=== PATIENT | female | born 1960 | race Caucasian/White ===

== ENCOUNTER 2020-07-22 08:35 | Outpatient (REF) | payer OTHER, SELFPAY ==
--- NOTE | 2020-07-22 08:12 | CT_ITS ---
EXAMINATION: CT HEAD WITHOUT CONTRAST CLINICAL INFORMATION: Intractable headache COMPARISON: None TECHNIQUE: Contiguous axial imaging was performed from the skull base to vertex without intravenous administration of contrast. This CT examination was performed using dose optimization techniques as appropriate, variously including the following: *Automated exposure control *Adjustment of mA and/or kV according to patient size (this includes techniques or standardized protocols for targeted exams where dose is matched to indication/reason for exam; i.e. extremities or head) *Use of iterative reconstruction technique DLP: 572 mGy-cm FINDINGS: There is no evidence of acute intracranial hemorrhage or territorial infarction. No abnormal mass effect or midline shift is seen. Salomon to white matter differentiation is well preserved. No extra-axial fluid collections are identified. The ventricles are normal in size. Multifocal patchy subcortical and periventricular white matter low-attenuation changes. Cavernous carotid calcifications. The osseous structures and soft tissues are normal. The mastoid air cells and visualized portions of the paranasal sinuses are well aerated. IMPRESSION: * No acute intracranial hemorrhage. * No evidence of intracranial mass. * Scattered subcortical and paratracheal white matter hypodensities are nonspecific, but statistically related to chronic microangiopathic gliosis in patients of this age, and in light of the extensive cavernous carotid calcifications.
== END 2020-07-22 08:36 | disposition home or self-care (01) ==
LOC: HO.CT 08:35
PROVIDERS: PCP Internal Medicine; Visit Provider Hospitalist
DX: R51.9 Headache, unspecified (principal)
CPT/HCPCS: 70450

== ENCOUNTER 2020-08-12 09:40 | Outpatient (REF) | payer OTHER, SELFPAY ==
[2020-08-12 12:02] LABS: Glucose Urine UA NEG (NEG); Leukocyte Esterase Urine NEG (NEG); Nitrite Urine NEG (NEG); Urine Blood TRACE (NEG); Urine Ketones NEG (NEG); Urine Protein NEG (NEG-TRACE)
[2020-08-12 12:06] LABS: Appearance Urine CLEAR; Color Urine YELLOW
[2020-08-12 12:15] LABS: Alanine Aminotransferase 28 U/L (0-31); Albumin Level 4.7 g/dL (3.5-5.0); Alkaline Phosphatase 91 U/L (39-117); Anion Gap 15 (12-20); Aspartate Amino Transferase 26 U/L (5-31); Bilirubin Total 0.7 mg/dL (0.0-1.0); Blood Urea Nitrogen 10 mg/dL (9-16); Carbon Dioxide 26 mmol/L (22-29); Chloride 107 mmol/L (96-108); Estimated Glomerular Filt Rate 59; Glucose Fasting 93 mg/dL (60-99); Potassium 4.5 mmol/l (3.3-5.1); Sodium 143 mmol/L (135-145); Total Protein 7.3 g/dL (6.5-8.0)
[2020-08-12 12:33] LABS: Mucus Urine TRACE /LPF; RBC Urine 0-2 /HPF (0); Squamous Epithelial Cell Urine TRACE /LPF; WBC Urine 0-2 /HPF (0-4)
== END 2020-08-12 09:41 | disposition home or self-care (01) ==
LOC: HO.HMGCLDS 09:40
PROVIDERS: PCP Internal Medicine; Visit Provider Internal Medicine
DX: M54.9 Dorsalgia, unspecified (principal); M85.80 Other specified disorders of bone density and structure, unspecified site; Z13.9 Encounter for screening, unspecified
CPT/HCPCS: 80053; 81001; 81003

== ENCOUNTER 2020-08-21 08:51 | Outpatient (REF) | payer OTHER, SELFPAY ==
--- NOTE | 2020-08-21 08:55 | US_ITS ---
EXAMINATION: US RETROPERITONEAL LIMITED (RENAL ONLY) CLINICAL INFORMATION: Dorsalgia, unspecified. COMPARISON: None TECHNIQUE: Real-time imaging of the kidneys. FINDINGS: RIGHT KIDNEY: 9.6 x 4.4 x 5.4 cm (SAG x AP x TRV). The kidney is normal in size, contour, and echogenicity. Renal cortical thickness is normal. No calculi or focal parenchymal lesions. There is mild caliectasis present. There is an extrarenal pelvis. LEFT KIDNEY: 10.2 x 4.4 x 4.3 cm (SAG x AP x TRV). The kidney is normal in size, contour, and echogenicity. Renal cortical thickness is normal. No calculi or focal parenchymal lesions. There is mild caliectasis present with extrarenal pelvis. US/US renal BI IMPRESSION: Mild bilateral caliectasis. No renal calculi appreciated.
== END 2020-08-21 08:52 | disposition home or self-care (01) ==
LOC: HO.HMGCX 08:51
PROVIDERS: PCP Internal Medicine; Visit Provider Internal Medicine
DX: M54.9 Dorsalgia, unspecified (principal)
CPT/HCPCS: 76775

== ENCOUNTER 2020-09-11 08:52 | Outpatient (REF) | payer OTHER, SELFPAY ==
--- NOTE | 2020-09-11 08:55 | CT_ITS ---
EXAMINATION: CT ABDOMEN AND PELVIS WITHOUT CONTRAST CLINICAL INFORMATION: Chronic kidney disease, stage III. COMPARISON: Ultrasound abdomen 08/21/2020 TECHNIQUE: Multidetector volumetric imaging was performed from the superior aspect of the liver through the pubic symphysis. Sagittal and coronal reformatted images were obtained on the technologist's workstation. This CT examination was performed using dose optimization techniques as appropriate, variously including the following: *Automated exposure control *Adjustment of mA and/or kV according to patient size (this includes techniques or standardized protocols for targeted exams where dose is matched to indication/reason for exam; i.e. extremities or head) *Use of iterative reconstruction technique DLP: 320 mGy-cm FINDINGS: LUNG BASES: The visualized lung bases are unremarkable. LIVER, GALLBLADDER, AND BILIARY TREE: The liver is normal in size, shape, and attenuation. No focal hepatic lesion or biliary ductal dilatation is present. The gallbladder is unremarkable with no evidence of radiopaque gallstones, gallbladder wall thickening, or obvious pericholecystic inflammatory changes. PANCREAS: Unremarkable. SPLEEN: Unremarkable. ADRENAL GLANDS: Unremarkable. KIDNEYS AND URETERS: The kidneys are normal in size, shape, and attenuation. There is a 2 mm radiopaque calculi lower pole calyx right kidney. No additional radiopaque calculi seen. There is mild caliectasis or peripelvic renal cysts. There is no hydronephrosis in either side. BLADDER: The bladder is nondistended and appears unremarkable. GASTROINTESTINAL TRACT: There is scattered stool and gas seen throughout the colon without distention. The small bowel loops are normal caliber. Appendix is normal caliber. No inflammatory process seen in the abdomen. ABDOMINAL WALL: No significant hernia is appreciated. LYMPH NODES: Normal. VASCULAR: Unremarkable. PELVIC VISCERA: There are several phleboliths in the pelvis. OSSEOUS STRUCTURES: Mild loss of disc height with vacuum disc phenomena at L5-S1 disc level. There is mild ventral spondylosis. The rest of the disc levels, vertebral heights and alignment is normal. CT/CT abdomen pelvis wo con IMPRESSION: Moderate constipation. No acute process seen. Left parapelvic cyst versus mild caliectasis. Degenerative disc changes with vacuum disc phenomena and mild spondylosis L5-S1 disc level.
== END 2020-09-11 08:53 | disposition home or self-care (01) ==
LOC: HO.CT 08:52
PROVIDERS: PCP Internal Medicine; Visit Provider Internal Medicine
DX: M54.9 Dorsalgia, unspecified (principal); N18.30 Chronic kidney disease, stage 3 unspecified; N28.89 Other specified disorders of kidney and ureter
CPT/HCPCS: 74176

== ENCOUNTER 2020-09-18 08:41 | Outpatient (REF) | payer OTHER, SELFPAY ==
[2020-09-18 11:23] LABS: Glucose Urine UA NEG (NEG); Leukocyte Esterase Urine TRACE (NEG); Nitrite Urine NEG (NEG); Urine Blood TRACE (NEG); Urine Ketones NEG (NEG); Urine Protein NEG (NEG-TRACE)
[2020-09-18 11:29] LABS: Appearance Urine CLEAR; Color Urine YELLOW
[2020-09-18 12:02] LABS: Calcium Oxalate Crystals Urine TRACE /LPF; Mucus Urine TRACE /LPF; RBC Urine 0-2 /HPF (0); Renal Epithelial Cells Urine TRACE /LPF; Squamous Epithelial Cell Urine TRACE /LPF
== END 2020-09-18 08:42 | disposition home or self-care (01) ==
LOC: HO.HMGCLDS 08:41
PROVIDERS: PCP Internal Medicine; Visit Provider Internal Medicine
DX: R31.9 Hematuria, unspecified (principal)
CPT/HCPCS: 81001; 87086

== ENCOUNTER 2020-10-24 10:57 | Outpatient (REF) | payer OTHER, SELFPAY ==
[2020-10-24 14:01] LABS: Baso%MD 0.2 %; Eos%MD 0.3 %; Hematocrit 44.8 % (37-47); Hemoglobin 14.5 g/dl (12.0-16.0); IG%MD 0.2 %; Lymph%MD 20.9 %; Mean Corpuscular HGB Conc 32.4 g/dl (31.0-35.0); Mean Corpuscular Hemoglobin 31.5 pg (27.0-33.0); Mean Corpuscular Volume 97.4 fL (80-98); Mean Platelet Volume 12.2 fL (9.4-12.3); Neut%MD 72.4 %; Platelet Count 254 X10*3/uL (160-400); Red Cell Distribution Width 12.6 % (11.0-16.0); White Blood Count 8.7 X10*3/uL (4.8-10.8)
[2020-10-24 14:29] LABS: Glucose Urine UA NEG (NEG); Leukocyte Esterase Urine 1+ (NEG); Nitrite Urine NEG (NEG); PH 6.5 (5.0-8.0); Specific Gravity - Urine <= 1.005 (1.005-1.025); Urine Blood TRACE (NEG); Urine Ketones NEG (NEG); Urine Protein NEG (NEG-TRACE)
[2020-10-24 14:35] LABS: Appearance Urine CLEAR; Color Urine YELLOW
[2020-10-24 14:46] LABS: Alanine Aminotransferase 26 U/L (0-31); Alkaline Phosphatase 94 U/L (39-117); Anion Gap 15 (12-20); Aspartate Amino Transferase 23 U/L (5-31); Bilirubin Total 0.8 mg/dL (0.0-1.0); Blood Urea Nitrogen 16 mg/dL (9-16); Calcium 9.9 mg/dL (8.4-10.2); Carbon Dioxide 26 mmol/L (22-29); Chloride 106 mmol/L (96-108); Cholesterol 215 mg/dL; Estimated Glomerular Filt Rate 49; Glucose Fasting 82 mg/dL (60-99); HDL Cholesterol 88 mg/dL; LDL Cholesterol Calculated 115 mg/dl; Potassium 5.2 mmol/l (3.3-5.1); Sodium 142 mmol/L (135-145); Total Protein 7.9 g/dL (6.5-8.0); Triglycerides 63 mg/dL
[2020-10-24 15:20] LABS: Thyroid Stimulating Hormone 0.94 uIU/mL (0.32-4.0); Vitamin D 25-OH Total 44.1 ng/mL (>30)
[2020-10-24 15:27] LABS: RBC Urine 0-2 /HPF (0); Renal Epithelial Cells Urine TRACE /LPF; Squamous Epithelial Cell Urine TRACE /LPF; WBC Urine 0-2 /HPF (0-4)
[2020-10-24 15:58] LABS: Atypical Lymph Absolute Manual 0.3 x10*3/uL; Atypical Lymphs Percent Manual 3 % (0-6); Band Neutrophils Percent 1 % (3-5); Lymphocytes Absolute Manual 1.8 X10*3/uL (0.6-4.8); Lymphocytes Percent Manual 21 % (20-40); Monocytes Absolute Manual 0.6 X10*3/uL (0.0-1.2); Monocytes Percent Manual 7 % (2-11); Neutrophils Percent Manual 68 % (45-73)
[2020-10-24 15:59] LABS: RBC Morphology NORMAL
[2020-10-24 16:00] LABS: Large Platelet PRESENT; Platelet Estimate NORMAL (NORMAL); Platelet Morphology Comment NOTED
== END 2020-10-24 10:58 | disposition home or self-care (01) ==
LOC: HO.HMGCLDS 10:57
PROVIDERS: PCP Internal Medicine; Visit Provider Internal Medicine
DX: Z00.00 Encounter for general adult medical examination without abnormal findings (principal); N28.9 Disorder of kidney and ureter, unspecified; E55.9 Vitamin D deficiency, unspecified
CPT/HCPCS: 36415; 80053; 80061; 81001; 81003; 82306; 84443; 85007; 85027; 87086

== ENCOUNTER 2021-04-18 06:54 | Outpatient (REF) | payer OTHER, SELFPAY ==
[2021-04-18 12:16] LABS: Alanine Aminotransferase 33 U/L (0-31); Albumin Level 4.4 g/dL (3.5-5.0); Alkaline Phosphatase 97 U/L (39-117); Anion Gap 17 (12-20); Aspartate Amino Transferase 23 U/L (5-31); Bilirubin Total 0.5 mg/dL (0.0-1.0); Blood Urea Nitrogen 24 mg/dL (9-16); Calcium 9.8 mg/dL (8.4-10.2); Carbon Dioxide 25 mmol/L (22-29); Chloride 105 mmol/L (96-108); Estimated Glomerular Filt Rate 56; Glucose Random 90 mg/dL (60-115); Potassium 4.7 mmol/L (3.3-5.1); Sodium 142 mmol/L (135-145); Total Protein 7.1 g/dL (6.5-8.0)
[2021-04-18 12:41] LABS: Thyroid Stimulating Hormone 1.26 uIU/mL (0.32-4.0); Vitamin D 25-OH Total 40.2 ng/mL (>30)
[2021-04-21 08:38] LABS: Calcium (PTHI) 9.7 mg/dL (8.6-10.4); PTHI 41 pg/mL (14-64)
[2021-04-23 06:23] LABS: N-Telopeptide 42 (see note); NTXCreaRU 31 mg/dL (20-275)
== END 2021-04-18 06:55 | disposition home or self-care (01) ==
LOC: HO.HMGCLDS 06:54
PROVIDERS: PCP Internal Medicine; Visit Provider Obstetrics & Gynecology Gynecology
DX: Z00.00 Encounter for general adult medical examination without abnormal findings (principal); N18.30 Chronic kidney disease, stage 3 unspecified; M85.9 Disorder of bone density and structure, unspecified
CPT/HCPCS: 36415; 80048; 80053; 82306; 82523; 83970; 84443

== ENCOUNTER 2021-08-28 09:28 | Day surgery (SDC) | payer OTHER, SELFPAY ==
--- NOTE | 2021-08-27 12:00 | HO.ANESPROP2 ---
Documented by User: Cristela Garrett NP 08/27/21 12:02 HPI - Anesthesia Eval Consult details Narrative: 61yo F for Colonoscopy PMFSH Active Problems Active Problems: All Active Problems (Updated 08/24/21 @ 09:33 by Remedios Barnes, STEPHAN) Annual physical exam (Acute) Hematuria (Acute) Caliectasis determined by ultrasound of kidney (Acute) Chronic kidney disease, stage 3 (Acute) Back pain (Acute) Past Medical History Medical History Back pain Caliectasis determined by ultrasound of kidney Chronic kidney disease, stage 3 Hematuria Osteopenia Sigmoid diverticulosis Family History Family History Father No problems noted. Mother Squamous cell lung cancer Son No problems noted. Daughter No problems noted. Surgical History Surgical History H/O colonoscopy History of colonoscopy History of tubal ligation Hx of ovarian cystectomy Social History Social History Patient Tobacco Use Status: Never used Tobacco Use of substances other than those prescribed or required for medical reasons: No Advance Directives: No Advance Directives Information Provided: Yes Recently lost weight without trying: No Patient : No Meds Allergies Allergy/AdvReac Type Severity Reaction Status Date / Time No Known Allergies Allergy Verified 08/24/21 09:35 Home Medications Medication Instructions Recorded Confirmed Last Taken Type calcium carbonate [Calcium 600] PO 08/12/20 10/29/20 Unknown History cholecalciferol (vitamin D3) 25 25 mcg PO DAILY 08/12/20 08/24/21 Unknown History mcg (1,000 unit) capsule magnesium PO 08/12/20 10/29/20 Unknown History pyridoxine (vitamin B6) PO 08/12/20 10/29/20 Unknown History alendronate 70 mg tablet 1 tab PO QWEEK 08/24/21 08/24/21 Unknown History Exam Exam Date and Time: August 27, 2021 1200 Pertinent Lab Results Pertinent Lab Results: Laboratory Tests 10/24/20 04/18/21 11:07 07:05 WBC 8.7 Hgb 14.5 Hct 44.8 Plt Count 254 Sodium 142 Potassium 4.7 Chloride 105 Carbon Dioxide 25 BUN 24 H Creatinine 1.01 Assessment and Plan Assessment Anesthesia Assessment: Chart Reviewed Documented by User: Kenisha Bullock MD 08/28/21 10:15 [facility] Past Medical History Medical History Back pain Caliectasis determined by ultrasound of kidney Chronic kidney disease, stage 3 Hematuria Osteopenia Sigmoid diverticulosis Family History Family History Father No problems noted. Mother Squamous cell lung cancer Son No problems noted. Daughter No problems noted. Surgical History Surgical History H/O colonoscopy History of colonoscopy History of tubal ligation Hx of ovarian cystectomy History of Problems with Anesthesia: No Social History Social History Patient Tobacco Use Status: Never used Tobacco Use of substances other than those prescribed or required for medical reasons: No Advance Directives: No Advance Directives Information Provided: Yes Recently lost weight without trying: No Patient : No Meds Allergies Allergy/AdvReac Type Severity Reaction Status Date / Time No Known Allergies Allergy Verified 08/24/21 09:35 Home Medications Medication Instructions Recorded Confirmed Last Taken Type calcium carbonate [Calcium 600] PO 08/12/20 10/29/20 Unknown History cholecalciferol (vitamin D3) 25 25 mcg PO DAILY 08/12/20 08/24/21 Unknown History mcg (1,000 unit) capsule magnesium PO 08/12/20 10/29/20 Unknown History pyridoxine (vitamin B6) PO 08/12/20 10/29/20 Unknown History alendronate 70 mg tablet 1 tab PO QWEEK 08/24/21 08/24/21 Unknown History Exam Airway Mallampati Class: I TM Dist: >3cm Neck ROM: Full Loose/Missing/Broken Teeth: No Heart: RRR Lungs: CTA Assessment and Plan Assessment Anesthesia Assessment: Anesthesia Plan Discussed Final Anesthetic Review History of Problems with Anesthesia: No NPO: Yes ASA Class: II Final Preanesthetic Review: Meds/Allgs Chart Reviewed, Consent Obtained/Reviewed and Anes Risks/Benef Reviewed Patient Risk: Low Procedure Risk: Low Anesthetic Plan Anesthetic Plan: MAC: Disposition: Standard PACU
[2021-08-28 09:40] VITALS: BP 121/68; PULSE 62; RESP 16; TEMP 36.9; O2SAT 100; BMI 21.7
[2021-08-28] MEDS: Lactated Ringers 1,000 ML 100 ML IVCONT (09:53)
[2021-08-28 11:27] VITALS: BP 95/46; PULSE 56; RESP 18; TEMP 36.3; O2SAT 99
--- NOTE | 2021-08-28 11:31 | PM.OP ---
Brief Operative Note Date of Service: 08/28/21 Pre-op diagnosis: Screening Post-op diagnosis: other (Mild diverticulosis) Procedure: Colonoscopy to the cecum and TI Surgeon: Jj Carter Anesthesia: MAC Was an Flight Software Test Engineer used for this Procedure?: No Estimated blood loss (mL): 0 Pathology: none sent Condition: stable Disposition: PACU
[2021-08-28 11:42] VITALS: BP 107/58; PULSE 59; RESP 18; TEMP 36.3; O2SAT 100
--- NOTE | 2021-08-28 22:13 | OP_ITS ---
SURGEON: Jj Carter MD INDICATIONS: The patient presents for evaluation of colorectal cancer screening and family history of colorectal cancer and colon polyps. Full consent has been obtained from her for this, including risks of bleeding and perforation. PREOPERATIVE DIAGNOSIS: POSTOPERATIVE DIAGNOSIS: PROCEDURE PERFORMED: ESTIMATED BLOOD LOSS: COMPLICATIONS: ANESTHESIA: Monitored anesthesia care. ASSISTANTS: SPECIMENS: PROCEDURE: Colonoscopy to the cecum and terminal ileum. PREOPERATIVE DIAGNOSES: Colorectal cancer screening, family history of colon cancer, family history of colon polyps. POSTOPERATIVE DIAGNOSES: Colorectal cancer screening, family history of colon cancer, family history of colon polyps, mild sigmoid diverticulosis. DESCRIPTION OF PROCEDURE: The patient was placed in the left lateral decubitus position. The digital rectal exam revealed no abnormalities. The Olympus video pediatric colonoscope was entered into the rectum and advanced easily to the cecum. Once in the cecum, I did visualize normal-appearing cecal pouch with appendiceal orifice and a normal-appearing ileocecal valve. The terminal ileum was cannulated and appeared normal. The scope withdrawn back in the colon. The entire cecum and ileocecal valve appeared normal. The scope was slowly withdrawn assessing all mucosal surfaces carefully. Preparation was excellent. I did not visualize any sign of polyps, colitis, nor angiodysplasia. There was a mild amount of sigmoid diverticulosis. In the rectum, scope was retroflexed visualizing normal rectal mucosa but no pathology. The rectal mucosa appeared normal. The scope was straightened and withdrawn from the patient. She tolerated the procedure well and was returned to recovery area in stable condition. IMPRESSION: Mild sigmoid diverticulosis, otherwise normal colonoscopy. PLAN: Given her family history, I would recommend a followup colonoscopy in 5 years for further screening. She will otherwise see me on a p.r.n. basis. This has been discussed with her . MD MIGUELINA Marte/CINDY / [phone]
== END 2021-08-28 12:31 | disposition home or self-care (01) ==
PROVIDERS: PCP Internal Medicine; Visit Provider Internal Medicine
PROC: 0DJD8ZZ Inspection of Lower Intestinal Tract, Via Natural or Artificial Opening Endoscopic (ICD-10-PCS; CPT 45378; principal; 2021-08-28 10:30)
DX: Z12.11 Encounter for screening for malignant neoplasm of colon (principal); Z80.0 Family history of malignant neoplasm of digestive organs; Z83.71 Family history of colonic polyps; K57.30 Diverticulosis of large intestine without perforation or abscess without bleeding
CPT/HCPCS: 45378

== ENCOUNTER 2021-10-27 09:25 | Outpatient (REF) | payer OTHER, SELFPAY ==
[2021-10-27 11:31] LABS: Hematocrit 41.6 % (37.0-47.0); Hemoglobin 13.4 g/dl (12.0-16.0); Mean Corpuscular HGB Conc 32.2 g/dl (31.0-35.0); Mean Corpuscular Hemoglobin 31.5 pg (27.0-33.0); Mean Corpuscular Volume 97.9 fL (80.0-98.0); Mean Platelet Volume 12.1 fL (9.4-12.3); Platelet Count 245 X10*3/uL (160-400); Red Blood Count 4.25 X10*6/uL (4.20-5.50); Red Cell Distribution Width 13.5 % (11.0-16.0); White Blood Count 6.2 X10*3/uL (4.8-10.8)
[2021-10-27 11:36] LABS: Appearance Urine CLEAR; Color Urine YELLOW; Glucose Urine UA NEG (NEG); Leukocyte Esterase Urine TRACE (NEG); Nitrite Urine NEG (NEG); PH 7.5 (5.0-8.0); Specific Gravity - Urine 1.015 (1.005-1.025); Urine Blood NEG (NEG); Urine Ketones NEG (NEG); Urine Protein NEG (NEG-TRACE)
[2021-10-27 12:10] LABS: Alanine Aminotransferase 49 U/L (0-31); Albumin Level 4.3 g/dL (3.5-5.0); Alkaline Phosphatase 71 U/L (39-117); Anion Gap 13 (12-20); Aspartate Amino Transferase 28 U/L (5-31); Bilirubin Total 0.6 mg/dL (0.0-1.0); Blood Urea Nitrogen 21 mg/dL (9-16); Carbon Dioxide 25 mmol/L (22-29); Chloride 110 mmol/L (96-108); Cholesterol 214 mg/dL; Estimated Glomerular Filt Rate > 60; Glucose Fasting 90 mg/dL (60-99); HDL Cholesterol 82 mg/dL; LDL Cholesterol Calculated 118 mg/dl; Potassium 4.1 mmol/L (3.3-5.1); Sodium 144 mmol/L (135-145); Total Protein 7.1 g/dL (6.5-8.0); Triglycerides 71 mg/dL
[2021-10-27 12:15] LABS: RBC Urine 0 /HPF (0); Squamous Epithelial Cell Urine TRACE /LPF; WBC Urine 0-2 /HPF (0-4)
[2021-10-27 12:24] LABS: Vitamin D 25-OH Total 38.8 ng/mL (>30)
== END 2021-10-27 09:26 | disposition home or self-care (01) ==
LOC: HO.HMGCLDS 09:25
PROVIDERS: PCP Internal Medicine; Visit Provider Internal Medicine
DX: Z00.00 Encounter for general adult medical examination without abnormal findings (principal); N18.30 Chronic kidney disease, stage 3 unspecified
CPT/HCPCS: 36415; 80053; 80061; 81001; 82306; 85027

== ENCOUNTER 2022-09-23 09:35 | Outpatient (REF) | payer OTHER, SELFPAY ==
--- NOTE | ~2022-09-23 | XR_ITS ---
EXAMINATION: XR ANKLE, RIGHT CLINICAL INFORMATION: Right ankle injury COMPARISON: None TECHNIQUE: AP, lateral, and mortise views of the right ankle. FINDINGS: There is mild lateral soft tissue swelling. The bones and soft tissues are otherwise unremarkable. No fracture. Alignment is anatomic. Joint spaces are maintained. No joint effusion. XR/XR ankle RT min 3V IMPRESSION: Lateral soft tissue swelling without fracture.
== END 2022-09-23 09:36 | disposition home or self-care (01) ==
LOC: HO.HMGCX 09:35
PROVIDERS: PCP Internal Medicine; Visit Provider Internal Medicine
DX: M25.571 Pain in right ankle and joints of right foot (principal); S99.911A Unspecified injury of right ankle, initial encounter; M25.471 Effusion, right ankle; R26.2 Difficulty in walking, not elsewhere classified; X58.XXXA Exposure to other specified factors, initial encounter; Y93.9 Activity, unspecified; Y92.9 Unspecified place or not applicable; Y99.9 Unspecified external cause status
CPT/HCPCS: 73610

== ENCOUNTER 2023-01-17 09:55 | Outpatient (REF) | payer OTHER, SELFPAY ==
[2023-01-17 11:22] LABS: Appearance Urine Clear; Color Urine Yellow; Glucose Urine UA Negative (Negative); Leukocyte Esterase Urine Trace (Negative); Nitrite Urine Negative (Negative); PH 8.5 (5.0-9.0); Specific Gravity - Urine 1.015 (1.005-1.025); UMIC TRIGGER UA YES; Urine Blood Negative (Negative); Urine Ketones Negative (Negative); Urine Protein Negative (Neg-Trace)
[2023-01-17 11:24] LABS: Hematocrit 40.4 % (37.0-47.0); Mean Corpuscular HGB Conc 32.2 g/dl (31.0-35.0); Mean Corpuscular Volume 96.4 fL (80.0-98.0); Mean Platelet Volume 11.7 fL (9.4-12.3); Platelet Count 253 X10*3/uL (160-400); Red Blood Count 4.19 X10*6/uL (4.20-5.50); White Blood Count 7.6 X10*3/uL (4.8-10.8)
[2023-01-17 11:27] LABS: Bacteria Urine None Seen (None Seen); Hyaline Casts Urine 0-2 /LPF (0-2); RBC Urine 0-2 /HPF (0-2); Squamous Epithelial Cell Urine 0-2 /HPF (0-2); WBC Urine 0-5 /HPF (0-5)
[2023-01-17 11:50] LABS: Alanine Aminotransferase 31 U/L (0-31); Albumin Level 4.3 g/dL (3.5-5.0); Alkaline Phosphatase 66 U/L (39-117); Anion Gap 10 (12-20); Aspartate Amino Transferase 24 U/L (5-31); Bilirubin Total 0.7 mg/dL (0.0-1.0); Blood Urea Nitrogen 13 mg/dL (9-16); Calcium 9.1 mg/dL (8.4-10.2); Carbon Dioxide 28 mmol/L (22-29); Chloride 108 mmol/L (96-108); Cholesterol 172 mg/dL; Estimated Glomerular Filt Rate 56; Glucose Fasting 89 mg/dL (60-99); HDL Cholesterol 60 mg/dL; LDL Cholesterol Calculated 100 mg/dl; Potassium 4.4 mmol/L (3.3-5.1); Sodium 142 mmol/L (135-145); Total Protein 6.6 g/dL (6.5-8.0); Triglycerides 60 mg/dL
[2023-01-17 12:10] LABS: Vitamin D 25-OH Total 37.4 ng/mL (>30)
[2023-01-23 15:34] LABS: Vitamin B6 6.5 ng/mL (2.1-21.7)
== END 2023-01-17 09:56 | disposition home or self-care (01) ==
LOC: HO.HMGCLDS 09:55
PROVIDERS: PCP Internal Medicine; Visit Provider Internal Medicine
DX: Z00.00 Encounter for general adult medical examination without abnormal findings (principal); M85.80 Other specified disorders of bone density and structure, unspecified site
CPT/HCPCS: 36415; 80053; 80061; 81001; 82306; 84207; 85027

== ENCOUNTER 2023-10-11 11:10 | Outpatient (AMB) | payer OTHER, SELFPAY ==
[2023-10-11 11:12] VITALS: BP 120/68; PULSE 66; O2SAT 99; BMI 24.3
--- NOTE | 2023-10-11 11:12 | A.OFFPC_ITS ---
Vital Signs 10/11/23 11:12 Height 5 ft 2 in Weight 133 lb BMI 24.3 BP 120/68 Blood Pressure Location Lt brachial Position Sitting Pulse 66 Pulse Source Pulse Oximeter Pulse Oximetry (%) 99 Oxygen Delivery Method Room Air Intake Visit Reasons: Lower back pain Intake Note: Pt is here today for a sick visit. Pt c/o lower back pain that radiates across her back. Pt also c/o raised area on the L side of her shoulder blade. Pt states that sometimes when she breaths she gets stabbing pain in that area. Allergies No Known Allergies Allergy (Verified 10/11/23 11:22) Medication List - Last Reconciled 10/11/23 by Hannah Koch MD alendronate 1 tab PO QWEEK calcium carbonate (Calcium 600) PO cholecalciferol (vitamin D3) 25 mcg PO DAILY estradiol (Yuvafem) 0 mcg vaginal magnesium PO Tobacco use date assessed: 10/11/23 Dental Screening Dental Screen Date: 10/11/23 Did you have a dental visit in the last 12 months?: Yes Did you have a dental problem in the last 6 months where you did not have access to dental care?: No Was dental information given to patient?: Patient has dentist HPI Lower back pain HPI Details Pt c/o persistent on and off since June LBP and midback pain sharp, worse with movement and deep breathing. also when walking or stretching, started in June. Patient denies any injury pain radiating to lower extremities weakness or numbness in extremities or change in bowel or bladder function, PFSH Medical History Back pain Caliectasis determined by ultrasound of kidney Chronic kidney disease, stage 3 Hematuria Osteopenia Sigmoid diverticulosis Surgical History H/O colonoscopy History of colonoscopy History of tubal ligation Hx of ovarian cystectomy Family History Father No problems noted. Mother Squamous cell lung cancer Son No problems noted. Daughter No problems noted. Social History Housing: House Patient Tobacco Use Status: Never used Tobacco e-Cigarette/Vaping Use: Never Used Current occupational status: employed Cognitive needs: No Hearing needs: No Vision needs: Yes Questionnaire PHQ-9 Over the last 2 weeks, how often have you been bothered by any of the following problems? 1. Little interest or pleasure in doing things: not at all 2. Feeling down, depressed, or hopeless: not at all 3. Trouble falling or staying asleep, or sleeping too much: not at all 4. Feeling tired or having little energy: not at all 5. Poor appetite or overeating: not at all 6. Feeling bad about yourself - or that you are a failure or have let yourself or your family down: not at all 7. Trouble concentrating on things, such as reading the newspaper or watching television: not at all 8. Moving or speaking so slowly that other people could have noticed. Or the opposite - being so fidgety or restless that you have been moving around a lot more than usual: not at all 9. Thoughts that you would be better off or of hurting yourself in some way: not at all Total score: 0 Depression Screening Interpretation: Negative Depression Screening Done: Yes Source: Developed by Drs. Jj Grover, Shelby Albarado, Phillip Tavera and colleagues, with an educational meri from [employer]. Thrive Questionnaire Date Thrive assessed: 10/11/23 I am a: Patient What is your living situation today?: I have a steady place to live Within the past 12 months, did the food you bought not last and you didn't have the money to get more?: Never true Within the past 12 months, did you worry whether your food would run out before you got money to buy more?: Never true Do you have trouble paying for medicines?: No Do you have trouble getting transportation to medical appointments?: No Do you have trouble paying your heating and electricity bill?: No Do you have trouble taking care of your child, family member or friend?: No Do you have trouble with day-to-day activities such as bathing, preparing meals, shopping, managing finances, etc.?: No Are you currently unemployed and looking for a job?: No Are you interested in more education?: No Please select the resources that you would like help with: None Currently or been in a relationship where the following occur: no concerns reported AUDIT C Alcohol Use Questionnaire (AUDIT-C) 1. How often do you have a drink containing alcohol?: Never 3. How often do you have six or more drinks on one occasion?: Never Total Score: 0 HARJEET-7 AMB Questionnaire HARJEET-7 Date HARJEET - 7 assessed: 10/11/23 Feeling nervous, anxious, or on edge: 0 = Not at all Not being able to stop or control worryin = Several days Worrying too much about different things: 0 = Not at all Trouble relaxin = Not at all Being so restless that it is hard to sit still: 0 = Not at all Becoming easily annoyed or irritable: 0 = Not at all Feeling afraid as if something awful might happen: 0 = Not at all Total HARJEET-7 score (0-4 normal; 5-9 mild; 10-14 moderate; 15-21 severe): 1 Source: Developed by Drs. Jj Grover, Shelby Albarado, Phillip Tavera and colleagues, with an educational meri from [employer]. Review of Systems Const All systems reviewed & are unremarkable except as noted in HPI and below Reports no additional complaints Eyes Reports no additional complaints ENT Reports no additional complaints Card Reports no additional complaints Resp Reports no additional complaints GI Reports no additional complaints Reports no additional complaints Physical exam (Primary Care) Vital Signs: Last Vital Signs Pulse 66 10/11/23 11:12 BP 120/68 10/11/23 11:12 Pulse Ox 99 10/11/23 11:12 Oxygen Delivery Method Room Air 10/11/23 11:12 BMI result Body Mass Index 24.3 Tobacco/Smoking Status: Tobacco use Status Tobacco use date assessed 10/11/23 10/11/23 11:24 Patient Tobacco Use Status Never used Tobacco 10/11/23 11:12 e-Cigarette/Vaping Use Never Used 10/11/23 11:12 PHQ-9: PHQ-9 Score PHQ-9: Total score 0 10/11/23 11:29 Depression Screening Interpretation: Negative Thrive Assessment: Date of Thrive Assessment Date Thrive assessed 10/11/23 10/11/23 11:29 Currently or been in a relationship where the following occur: no concerns reported Const General: no acute distress HENMT Head: Yes normal to inspection Ears: hearing grossly normal bilaterally General nose exam: Normal external nose present Mouth: Normal oral and palatal mucosa present Throat: Yes posterior oropharynx normal Eyes General: appearance normal, both eyes and all related structures Neck Neck: Yes supple Resp Effort & Inspection: normal respiratory effort Auscultation: clear to auscultation bilaterally Cardio Rhythm: regular rhythm Heart sounds: S1 normal heart sound present and S2 normal heart sound present GI Auscultation: normal bowel sounds Back/Spine/Pelvis Other: There is left mid thoracic paraspinal reproducible tenderness, no soft tissue swelling, erythema or warmth, there is no lumbar spine tenderness, straight leg rising 90 degrees bilaterally, motor strength 5/5 bilaterally Assessment and Plan Assessment & Plan (1) Thoracic spine pain: Code(s): M54.6 - Pain in thoracic spine Plan: Obtain x-rays and referred to physical therapy (2) Lower back pain: Code(s): M54.50 - Low back pain, unspecified Plan: Check x-ray and referred to physical therapy, body mechanics and lower back protection discussed with the patient Orders: Orders XR lumbar spine 2-3V Today M54.50 - Low back pain, unspecified, M54.6 - Pain in thoracic spine XR thoracic spine 2V Today M54.50 - Low back pain, unspecified, M54.6 - Pain in thoracic spine PT Evaluation and Treatment Today M54.50 - Low back pain, unspecified, M54.6 - Pain in thoracic spine Coding Level of Care Code Est Pt Level 3 (26632) Diagnoses Thoracic spine pain M54.6 Lower back pain M54.50
== END 2023-10-11 11:53 | disposition home or self-care (01) ==
PROVIDERS: PCP Internal Medicine; Visit Provider Internal Medicine
DX: M54.6 Pain in thoracic spine (principal); M54.50 Low back pain, unspecified
CPT/HCPCS: 99213

== ENCOUNTER 2023-10-11 11:50 | Outpatient (REF) | payer OTHER, SELFPAY | END 2023-10-11 11:51 | disposition home or self-care (01) | LOC: HO.HMGCX 11:50 | PROVIDERS: PCP Internal Medicine; Visit Provider Internal Medicine | DX: M54.50 Low back pain, unspecified (principal); M54.6 Pain in thoracic spine | CPT/HCPCS: 72070; 72100 ==

== ENCOUNTER 2023-11-25 08:00 | Outpatient (RCR) | payer OTHER, SELFPAY ==
--- NOTE | 2023-10-28 09:14 | MHC.PT.EP ---
[facility] [place] Office [place] Office [place] Office [address] [phone] F: [phone] F: [phone] F: [phone] F: [phone] Physical Therapy Plan of Care Date of Evaluation: 10/28/23 Date of Surgery: Diagnosis: pain in thoracic spine LBP Assessment: 63 y/o R-hand dominant female referred to PT with pain thoracic spine and LBP. S/s consistent with lumbar derangement, L hip tendinopathy, and trigger point of L rhomboids resulting in pain with supine lying, L UE reaching at times secondary to decreased hip AROM, decreased L hip strength, slightly decreased core activation, [place] with gait, and impaired mechanics with bridges/ squats/ quadruped. Pt would like to learn how to manage chornic back pain and plan to review her I HEP while correcting form, constipation management education, STM/MFR to hip/scapular region, and strengthening. Frequency and Duration: The patient will be seen 1x/week for 4 weeks Short Term Goals: 2 weeks Pt will demonstrate neutral spine with quadruped exercises without cues 8/10x Thermodynamics Engineer Goals: 4 weeks I with HEP and self management of sx Pt will report > 50% decrease in pain L hip Treatment Plan: Modalities to reduce pain, spasms and effusion. Manual therapy to restore motion and function. Therapeutic exercise to improve strength and flexibility. Neuromuscular re-education for posture and balance. Therapeutic activities to return to functional activities of daily living. Electronically signed by: Fide Pritchard PT Please sign and return to therapist. Thank you for your referral.
--- NOTE | 2023-11-25 08:56 | MHC.PT.DC ---
[facility] [place] Office [place] Office [place] Office [address] [phone] F: [phone] F: [phone] F: [phone] F: [phone] Physical Therapy Discharge Report Diagnosis: pain in thoracic spine LBP Date of Surgery: Date of Evaluation: 10/28/23 Date of Discharge: 11/25/23 Treatments to Date: 5 Cancellations to Date: 0 No Shows to Date: 0 Discharge Status: Achieved Goals Improved Function Independent with HEP Discharge Summary: Reports hip sx feel better, but the trigger point in L scapula is still there. Reports exercises feel good and she has more awareness of pelvis/rib cage alignment. We reviewed HEP and no modifications or corrections needed. Pt is appropriate for d/c secondary to meeting all goals and I with HEP. Electronically signed by: Fide Pritchard PT Please sign and return to therapist. Thank you for your referral.
== END 2023-11-25 08:56 | disposition home or self-care (01) ==
LOC: HO.PTCHIC 08:00
PROVIDERS: PCP Internal Medicine; Visit Provider Internal Medicine
DX: M54.6 Pain in thoracic spine (principal); M54.50 Low back pain, unspecified
CPT/HCPCS: 97110; 97112; 97140; 97161

== ENCOUNTER 2024-01-18 09:21 | Outpatient (REF) | payer OTHER, SELFPAY ==
[2024-01-18 10:37] LABS: MANUAL DIFF FLAG NO
[2024-01-18 10:47] LABS: Basophils Percent Auto 0.4 % (0-2); Eosinophils Percent Auto 0.2 % (0-4); Hemoglobin 14.1 g/dl (12.0-16.0); Imm Gran Abs Auto 0.03 X10*3/uL (0.00-0.03); Imm Gran Pct Auto 0.4 % (0.0-0.4); Lymphocytes Absolute Auto 1.7 X10*3/uL (1.2-4.9); Mean Corpuscular HGB Conc 32.8 g/dl (31.0-35.0); Mean Corpuscular Hemoglobin 31.5 pg (27.0-33.0); Mean Platelet Volume 11.9 fL (9.4-12.3); Monocytes Absolute Auto 0.6 X10*3/uL (0.1-1.2); Monocytes Percent Auto 6.7 % (2-11); Neutrophils Absolute Auto 6.1 x10*3/uL (2.0-8.3); Neutrophils Percent Auto 72.3 % (45-73); Platelet Count 247 X10*3/uL (160-400); Red Blood Count 4.48 X10*6/uL (4.20-5.50); Red Cell Distribution Width 12.7 % (11.0-16.0); White Blood Count 8.4 X10*3/uL (4.8-10.8)
[2024-01-18 11:33] LABS: Alanine Aminotransferase 20 U/L (0-31); Albumin Level 4.8 g/dL (3.5-5.0); Alkaline Phosphatase 63 U/L (39-117); Anion Gap 14 (12-20); Aspartate Amino Transferase 20 U/L (5-31); Bilirubin Total 0.8 mg/dL (0.0-1.0); Blood Urea Nitrogen 19 mg/dL (9-16); Calcium 9.2 mg/dL (8.4-10.2); Carbon Dioxide 26 mmol/L (22-29); Chloride 108 mmol/L (96-108); Cholesterol 185 mg/dL (<200); Estimated Glomerular Filt Rate 55; Glucose Fasting 91 mg/dL (60-99); HDL Cholesterol 83 mg/dL (>40); LDL Cholesterol Calculated 91 mg/dL (<100); Potassium 4.1 mmol/L (3.3-5.1); Sodium 144 mmol/L (135-145); Total Protein 7.6 g/dL (6.5-8.0); Triglycerides 55 mg/dL (<150)
[2024-01-18 11:38] LABS: TSH reflex Free T4 1.73 uIU/mL (0.32-4.0); Vitamin D 25-OH Total 36.7 ng/mL (>30)
== END 2024-01-18 09:22 | disposition home or self-care (01) ==
LOC: HO.HMGCLDS 09:21
PROVIDERS: PCP Internal Medicine; Visit Provider Internal Medicine
DX: Z00.00 Encounter for general adult medical examination without abnormal findings (principal); N18.30 Chronic kidney disease, stage 3 unspecified; E55.9 Vitamin D deficiency, unspecified
CPT/HCPCS: 36415; 80053; 80061; 82306; 84443; 85025

== ENCOUNTER 2024-01-31 07:45 | Outpatient (AMB) | payer OTHER, SELFPAY ==
[2024-01-31 08:10] VITALS: BP 108/70; PULSE 60; O2SAT 99; BMI 23.4
--- NOTE | 2024-01-31 08:10 | MHC.PC.OV ---
Vital Signs 01/31/24 08:10 Height 5 ft 2 in Weight 128 lb BMI 23.4 BP 108/70 Blood Pressure Location Rt brachial Position Sitting Pulse 60 Pulse Source Pulse Oximeter Pulse Oximetry (%) 99 Oxygen Delivery Method Room Air Intake Visit Reasons: PE Intake Note: Pt is here today for PE. Allergies No Known Allergies Allergy (Verified 01/31/24 08:11) Medication List - Last Reconciled 01/31/24 by Hannah Koch MD alendronate 1 tab PO QWEEK calcium carbonate (Calcium 600) PO cholecalciferol (vitamin D3) 25 mcg PO DAILY estradiol (Yuvafem) 0 mcg vaginal magnesium PO Tobacco use date assessed: 01/31/24 Dental Screening Dental Screen Date: 01/31/24 Did you have a dental visit in the last 12 months?: Yes Did you have a dental problem in the last 6 months where you did not have access to dental care?: No Was dental information given to patient?: Patient has dentist HPI PE HPI Details Pt presents for PE. 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 Mother Squamous cell lung cancer Son No problems noted. Daughter No problems noted. Social History Housing: House Patient Tobacco Use Status: Never used Tobacco e-Cigarette/Vaping Use: Never Used service: No Current occupational status: employed Cognitive needs: No Hearing needs: No Vision needs: Yes Questionnaire PHQ-9 Over the last 2 weeks, how often have you been bothered by any of the following problems? 1. Little interest or pleasure in doing things: not at all 2. Feeling down, depressed, or hopeless: not at all 3. Trouble falling or staying asleep, or sleeping too much: not at all 4. Feeling tired or having little energy: not at all 5. Poor appetite or overeating: not at all 6. Feeling bad about yourself - or that you are a failure or have let yourself or your family down: not at all 7. Trouble concentrating on things, such as reading the newspaper or watching television: not at all 8. Moving or speaking so slowly that other people could have noticed. Or the opposite - being so fidgety or restless that you have been moving around a lot more than usual: not at all 9. Thoughts that you would be better off or of hurting yourself in some way: not at all Total score: 0 Depression Screening Interpretation: Negative Depression Screening Done: Yes Source: Developed by Drs. Jj Grover, Shelby Albarado, Phillip Tavera and colleagues, with an educational meri from [employer]. Thrive Questionnaire Date Thrive assessed: 01/31/24 I am a: Patient What is your living situation today?: I have a steady place to live Within the past 12 months, did the food you bought not last and you didn't have the money to get more?: Never true Within the past 12 months, did you worry whether your food would run out before you got money to buy more?: Never true Do you have trouble paying for medicines?: No Do you have trouble getting transportation to medical appointments?: No Do you have trouble paying your heating and electricity bill?: No Do you have trouble taking care of your child, family member or friend?: No Do you have trouble with day-to-day activities such as bathing, preparing meals, shopping, managing finances, etc.?: No Are you currently unemployed and looking for a job?: No Are you interested in more education?: No Please select the resources that you would like help with: None THRIVE Score: 0 AUDIT C Alcohol Use Questionnaire (AUDIT-C) 1. How often do you have a drink containing alcohol?: Never 3. How often do you have six or more drinks on one occasion?: Never Total Score: 0 HARJEET-7 AMB Questionnaire HARJEET-7 Date HARJEET - 7 assessed: 01/31/24 Feeling nervous, anxious, or on edge: 0 = Not at all Not being able to stop or control worryin = Not at all Worrying too much about different things: 0 = Not at all Trouble relaxin = Not at all Being so restless that it is hard to sit still: 0 = Not at all Becoming easily annoyed or irritable: 0 = Not at all Feeling afraid as if something awful might happen: 0 = Not at all Total HARJEET-7 score (0-4 normal; 5-9 mild; 10-14 moderate; 15-21 severe): 0 Source: Developed by Drs. Jj Grover, Shelby Albarado, Phillip Tavera and colleagues, with an educational meri from [employer]. Review of Systems Const All systems reviewed & are unremarkable except as noted in HPI and below Eyes Reports no additional complaints ENT Reports no additional complaints Card Reports no additional complaints Resp Reports no additional complaints GI Reports no additional complaints Reports no additional complaints Physical exam (Primary Care) Vital Signs: Last Vital Signs Pulse 60 01/31/24 08:10 BP 108/70 01/31/24 08:10 Pulse Ox 99 01/31/24 08:10 Oxygen Delivery Method Room Air 01/31/24 08:10 BMI result Body Mass Index 23.4 Tobacco/Smoking Status: Tobacco use Status Tobacco use date assessed 01/31/24 01/31/24 08:16 Patient Tobacco Use Status Never used Tobacco 01/31/24 08:11 e-Cigarette/Vaping Use Never Used 01/31/24 08:11 PHQ-9: PHQ-9 Score PHQ-9: Total score 0 01/31/24 08:16 Depression Screening Interpretation: Negative Thrive Assessment: Date of Thrive Assessment Date Thrive assessed 01/31/24 01/31/24 08:16 Const General: no acute distress HENMT Head: Yes normal to inspection Ears: hearing grossly normal bilaterally General nose exam: Normal external nose present Throat: Yes posterior oropharynx normal Eyes General: appearance normal, both eyes and all related structures Neck Neck: Yes no lymphadenopathy and Yes supple Resp Effort & Inspection: normal respiratory effort Auscultation: clear to auscultation bilaterally Cardio Rhythm: regular rhythm Heart sounds: S1 normal heart sound present and S2 normal heart sound present GI Inspection: Yes normal to inspection Palpation (GI): Soft to palpation Percussion: Yes normal to percussion Auscultation: normal bowel sounds Assessment and Plan Assessment & Plan (1) Chronic kidney disease, stage 3: Code(s): N18.30 - Chronic kidney disease, stage 3 unspecified Plan: AVOID NEPHROTOXINS MONITOR RENAL FUNCTION (2) Annual physical exam: Code(s): Z00.00 - Encounter for general adult medical examination without abnormal findings Plan: Well-balanced diet regular physical activity discussed with the patient she is up-to-date with the mammogram 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 and colonoscopy (3) Osteopenia: Comment: 09/2019 [facility], worsening osteoporosis DEXA 06/30, started 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 Code(s): M85.80 - Other specified disorders of bone density and structure, unspecified site Plan: Continue Fosamax, vitamin-D and weight-bearing exercises Orders: Orders UA w Microscopic Today N18.30 - Chronic kidney disease, stage 3 unspecified Complete Blood Count Auto Diff 1 Year E55.9 - Vitamin D deficiency, unspecified, M85.80 - Other specified disorders of bone density and structure, unspecified site, N18.30 - Chronic kidney disease, stage 3 unspecified, Z00.00 - Encounter for general adult medical examination without abnormal findings Vitamin D 25-OH Total 1 Year E55.9 - Vitamin D deficiency, unspecified, M85.80 - Other specified disorders of bone density and structure, unspecified site, N18.30 - Chronic kidney disease, stage 3 unspecified, Z00.00 - Encounter for general adult medical examination without abnormal findings TSH reflex Free T4 1 Year E55.9 - Vitamin D deficiency, unspecified, M85.80 - Other specified disorders of bone density and structure, unspecified site, N18.30 - Chronic kidney disease, stage 3 unspecified, Z00.00 - Encounter for general adult medical examination without abnormal findings UA w Microscopic 1 Year E55.9 - Vitamin D deficiency, unspecified, M85.80 - Other specified disorders of bone density and structure, unspecified site, N18.30 - Chronic kidney disease, stage 3 unspecified, Z00.00 - Encounter for general adult medical examination without abnormal findings Comprehensive [place]. Panel Fast 1 Year E55.9 - Vitamin D deficiency, unspecified, M85.80 - Other specified disorders of bone density and structure, unspecified site, N18.30 - Chronic kidney disease, stage 3 unspecified, Z00.00 - Encounter for general adult medical examination without abnormal findings Lipid Panel 1 Year E55.9 - Vitamin D deficiency, unspecified, M85.80 - Other specified disorders of bone density and structure, unspecified site, N18.30 - Chronic kidney disease, stage 3 unspecified, Z00.00 - Encounter for general adult medical examination without abnormal findings Coding Level of Care Code Est Pt Prev Care 40-64y(04884) Diagnoses Chronic kidney disease, stage 3 N18.30 Annual physical exam Z00.00 Osteopenia M85.80
== END 2024-01-31 08:56 | disposition home or self-care (01) ==
PROVIDERS: Visit Provider Internal Medicine
DX: N18.30 Chronic kidney disease, stage 3 unspecified (principal); Z00.00 Encounter for general adult medical examination without abnormal findings; M85.80 Other specified disorders of bone density and structure, unspecified site
CPT/HCPCS: 99396

== ENCOUNTER 2024-01-31 08:47 | Outpatient (REF) | payer OTHER, SELFPAY ==
[2024-01-31 10:41] LABS: Appearance Urine Clear; Color Urine Yellow; Glucose Urine UA Negative (Negative); Leukocyte Esterase Urine Negative (Negative); Nitrite Urine Negative (Negative); PH 7.5 (5.0-9.0); Urine Blood Negative (Negative); Urine Ketones Trace mg/dL (Negative); Urine Protein Negative (Neg-Trace)
[2024-01-31 10:48] LABS: Bacteria Urine None Seen (None Seen); RBC Urine 0-2 /HPF (0-2); Squamous Epithelial Cell Urine 0-2 /HPF (0-2); WBC Urine 0-5 /HPF (0-5)
== END 2024-01-31 08:48 | disposition home or self-care (01) ==
LOC: HO.HMGCLDS 08:47
PROVIDERS: PCP Internal Medicine; Visit Provider Internal Medicine
DX: N18.30 Chronic kidney disease, stage 3 unspecified (principal)
CPT/HCPCS: 81001

== ENCOUNTER 2025-02-22 08:54 | Outpatient (REF) | payer OTHER, SELFPAY ==
--- OUTSIDE RECORDS SUMMARY | 2025-02-22 09:06 | XMS_ITS | Patient Health Record ---
Author Organization [facility] Address [address] [place] [address] Care Team Providers Care Sheep Shearer Name Role Phone August CRUZ, Hannah Primary Care Provider Kaley Vargas Unavailable [phone] Allergies No Known Allergies Results Component Value Reference Range Notes Urinalysis Reviewed date:12/27/2024 09:23:38 AM Interpretation: Performing Lab: Notes/Report: PH 5.0 PROTEIN Neg GLUCOSE Neg BLOOD Trace Reason For Referral No Information Medications Medication SIG (Take, Route, Frequency, Duration) Notes Start Date End Date Status Alendronate Sodium 70 MG TAKE 1 TABLET B Y MOUTH WEEKLY for 90 Active Vitamin D-Vitamin K Active Multi-Vitamin - 1 tablet Orally Once a day for 30 day(s) Not-Taking Calcium 600 MG 1 tablet with meals Orally Once a day Active Yuvafem 10 MCG 1 tablet Vaginal TWI CE A WEEK for 90 days 12/19/2023 Active Yuvafem 10 MCG 1 tablet Vaginal TWI CE A WEEK for 90 days 12/27/2024 Active Social History Tobacco Use: Social History Observation Description Date Details (start date - stop date) Never Smoker NA - NA AUDIT-C (Standard) Question Answer Notes Did you have a drink containing alcohol in the p ast year? No Points 0 Interpretation Negative Tobacco Control (Standard) Question Answer Notes Tobacco use: Nonsmoker Problems Problem Type SNOMED Code ICD Code Onset Dates Problem Status W/U Status Risk Notes Problem Postmenopausal atrophic vaginitis (98663962) Postmenopausal atrophic vaginitis (N95.2) Active confirmed Problem Age-related osteoporosis (072641221) Age-related osteoporosis without current pathological fracture (M81.0) Active confirmed Problem History of dysplasia of cervix (118158941) Personal history of cervical dysplasia (Z87.410) Active confirmed Problem Menopausal symptom (26621393) Symptomatic menopausal or female climacteric states (627.2) Active confirmed Major Problem Postmenopausal atrophic vaginitis (15244254) Postmenopausal atrophic vaginitis (627.3) Active confirmed Diag Problem Gynecological examination normal (956406292084193) Routine gynecological examination (V72.31) Active confirmed Diag Problem Screening for malignant neoplasm of cervix (005741532) Screening for malignant neoplasm of the cervix (V76.2) Active confirmed Diag Problem Screening for malignant neoplasm of colon (406359762) Special screening for malignant neoplasms, colon (V76.51) Active confirmed Major Vital Signs Temperature 97.9 degrees Fahrenheit 12/27/2024 Blood pressure diastolic 68 mm Hg 12/27/2024 Height 61 in 12/27/2024 Blood pressure systolic 114 mm Hg 12/27/2024 Weight 118 lbs 12/27/2024 BMI 22.29 kg/m2 12/27/2024 Encounters Encounter Location Date Provider Diagnosis [address] [address] 12/27/2024 Kaley Cardona Encounter for gynecological examination (general) (routine) without abnormal findings Z01.419 ; Encounter for screening mammogram for malignant neoplasm of breast Z12.31 ; Personal history of cervical dysplasia Z87.410 ; Age-related osteoporosis without current pathological fracture M81.0 ; Postmenopausal atrophic vaginitis N95.2 and Dense breasts, unspecified R92.30 Assessments Encounter Date Diagnosis (ICD Code) Assessment Notes Treatment Notes Treatment Clinical Notes Section Notes 12/27/2024 Encounter for gynecological examination (general) (routine) without abnormal findings (ICD-10 - Z01.419) NO PAP TEST, DUE IN 2026. 12/27/2024 Encounter for screening mammogram for malignant neoplasm of breast (ICD-10 - Z12.31) REGULAR MAMMOGRAMS AND SBE'S WERE RECOMMENDED. 12/27/2024 Personal history of cervical dysplasia (ICD-10 - Z87.410) DISCUSSED PREVIOUS LEEP AND SUBSEQUENTLY NEGATIVE PAP TESTS AND NEGATIVE HPV TYPING. 12/27/2024 Age-related osteoporosis without current pathological fracture (ICD-10 - M81.0) DISCUSSED OSTEOPOROSIS AND ITS IMPACT ON HER HEALTH. DISCUSSED MARKED IMPROVEMENT OF T-SCORES DUE TO FOSAMAX AND WEIGHT BEARING EXERCISES. ADEQUATE CALCIUM AND VIT D. OSTEOPOROSIS PRECAUTIONS. CONTINUE WEIGHT BEARING EXERCISES. CONTINUE FOSAMAX UNTIL 2025. 12/27/2024 Postmenopausal atrophic vaginitis (ICD-10 - N95.2) CONTINUE YUVAFEM 12/27/2024 Dense breasts, unspecified (ICD-10 - R92.30) DISCUSSED DENSE BREASTS ON MAMMOGRAM AND ITS IMPLICATIONS. 3D MAMMOGRAMS WERE RECOMMENDED. Plan Of Treatment Pending Test Test Name Order Date MAMMOGRAM, SCREENING 12/11/2021 MAMMOGRAM, SCREENING 12/17/2022 MAMMOGRAM, SCREENING 12/19/2023 Urinalysis 12/19/2023 Urinalysis 09/08/2021 25OH VITAMIN D 04/14/2021 COMPREHENSIVE METABOLIC PANEL 04/14/2021 N-TELOPEPTIDE CROSS 04/14/2021 PTH, INTACT 04/14/2021 THIN PREP,HPV,GAYLE IF HPV+ (>29YR)(SCRN) 09/12/2017 TSH 04/14/2021 BONE DENSITY 12/27/2024 BONE DENSITY 12/05/2020 BONE DENSITY 12/17/2022 MM Digital Mammo Screening 12/17/2022 MM Digital Mammo Screening 12/05/2020 MM Digital Mammo Screening 12/11/2021 MM Digital Mammo Screening 12/27/2024 MM Digital Mammo Screening 12/19/2023 [id number] IGP No Culture 30 Plus 2023 Next Appt Details Provider Name:Kaley cao, 01/02/2026 08:00:00 AM, [address] [place] [address], [address], [place], [address], Insurance Providers Payer Name Payer Address Payer Phone Subscriber Number Group Number Insured Name Patient Relationship to Insured Coverage Start Date Coverage End Date [employer] [address] [place] [address] [phone] [id number] SONNY BRUNO Self - patient is the insured Medical (General) History Medical History History ICD Code Postmenopausal atrophic vaginitis N95.2 Menopausal and female climacteric states N95.1 Personal history of cervical dysplasia Z 87.410 Hematuria, unspecified R31.9 Disorder of bone density and structure, unspecified M85.9 Inconclusive mammogram R92.2 Age-related osteoporosis without current pathological fracture M81.0 Mammographic heterogeneous density, bila teral breasts R92.333 Dense breasts, unspecified R92.30 Other specified disorders of bone densit y and structure, multiple sites M85.89 Surgical History Surgery Date(Month/Year) [place] Bilateral Tubal Ligation Myomectomy Left Salpingoopherectomy Colonoscopy Colposcopy Leep Hospitalization History Reason Date(Month/Year) See Surgical Hx 2 Vaginal Deliveries
--- OUTSIDE RECORDS SUMMARY | 2025-02-22 09:07 | XMS_ITS | Patient Health Record ---
Author Organization [facility] Address [address] [place] [address] Care Team Providers Care Brush Worker Name Role Phone Hannah Koch MD Primary Care Provider Jj Barry [phone] Allergies No Known Allergies Reason For Referral No Information Medications Medication SIG (Take, Route, Frequency, Duration) Notes Start Date End Date Status Calcium Active Vitamin B6 Active Magnesium Active Immunizations Vaccine Route Administration Date Status Comme nts Influenza Unknown 07/16/2021 Administered Problems Problem Type SNOMED Code ICD Code Onset Dates Problem Status W/U Status Risk Notes Problem 028585453 Encounter for screening for malignant neoplasm of colon (Z12.11) Active confirmed Problem 686827060241517 Preprocedural examination (Z01.818) Active confirmed Problem 608745435 Family hx coloni c polyps (Z83.71) Active confirmed Problem 4590910433967 Family history o f colorectal cancer (Z80.0) Active confirmed Problem Diverticulosis of colon (401210875) Diverticulosis of colon (K57.30) Active confirmed Encounters Encounter Location Date Provider Diagnosis [facility] [address] [place] [phone] 04/23/2024 Jj Caretr Plan Of Treatment Future Test Test Name Order Date COLONOSCOPY 07/08/2015 COLONOSCOPY 07/17/2021 Insurance Providers Payer Name Payer Address Payer Phone Subscriber Number Group Number Insured Name Patient Relationship to Insured Coverage Start Date Coverage End Date [employer] [address] [place] [address] [id number] SONNY BRUNO Self - patient is the insured Medical (General) History Medical History History ICD Code Colonoscopy 06-02-2009 was ne gative other than some mild sigmoid diverticulosis and small internal hemorrhoids; negative screening colonoscopy in 09/2015 Denies [place],DM,CVA,Lung disease,renal dise ase Surgical History Surgery Date(Month/Year) Tubal ligation 1985 Left ovarian cyst 2007
--- OUTSIDE RECORDS SUMMARY | 2025-02-22 09:07 | XMS_ITS ---
Author Organization [employer] Address [address] [place] [address] Care Team Providers Care Human Service Technician Name Role Phone August CRUZ, Hannah Primary Care Provider Kaley Vargas Unavailable [phone] REASON FOR VISIT Annual TRAPPER ANIMAL Physical Encounters Encounter Location Date Provider Diagnosis [employer] [address] [place] [address] 12/23/2023 Kaley Cardona Plan Of Treatment Next Appt Details Provider Name:Kaley cao, 01/02/2026 08:00:00 AM, [address], [address], [place], [address], Progress Notes * OG BRUNO:[birth year] 60 (64 yo F)Acc No.[id number]:12/23/2023 PROGRESS NOTES Patient:?SONNY BRUNO Appointment Provider:?Kaley cao M.D. :1960???Age:63 Y???Sex:Female D ate:12/23/2023 Address:[address] [place] [address] [place], [place] Pcp:Hannah Koch MD Subjective: * Chief Complaints: * ???1. Annual TRAPPER ANIMAL Physical. * Medical History:? Objective: * Vitals:? Assessment: Plan: * Treatment: * Images: Billing Information: * Visit Code:? * Procedure Codes:? * Electronic signature of Miryam Cardona MD on 02/22/2025 at 09:07 AM EDT Sign off status: Pending * Appointment Provider:?Kaley Cardona M.D. Date:?12/23/2023 Generated for Mesfin mccabe/Antony/Miriam on:?02/22/2025 09:07 AM EDT
--- OUTSIDE RECORDS SUMMARY | 2025-02-22 09:07 | XMS_ITS ---
Author Organization [facility] Address [address] [place] [address] Care Team Providers Care Head Holder Name Role Phone Hannah Koch MD Primary Care Provider Jj Barry [phone] REASON FOR VISIT growth Encounters Encounter Location Date Provider Diagnosis [facility] [address] [place] [address] 04/23/2024 Jj Carter Plan Of Treatment No Information Progress Notes * ROMÁN BRUNOB:[birth year] 60 (63 yo F)Acc No.[id number]:04/23/2024 Patient:?SONNY BRUNO :1960???Age:63 Y???Sex:Female Address:[address] [place] [address] [place] [address] * true * Date:? Generated for Mesfin mccabe/Antony/eTransmitting on:?02/22/2025 09:06 AM EDT
[2025-02-22 10:00] LABS: Appearance Urine Clear; Color Urine Yellow; Glucose Urine UA Negative (Negative); Leukocyte Esterase Urine Trace (Negative); Nitrite Urine Negative (Negative); PH 5.5 (5.0-9.0); Specific Gravity - Urine 1.025 (1.005-1.025); UMIC TRIGGER UA YES; Urine Blood Trace (Negative); Urine Ketones 15 mg/dL (Negative); Urine Protein Negative (Neg-Trace)
[2025-02-22 10:04] LABS: Bacteria Urine Trace (None Seen); Hyaline Casts Urine 0-2 /LPF (0-2); RBC Urine 0-2 /HPF (0-2); WBC Urine 0-5 /HPF (0-5)
[2025-02-22 10:21] LABS: MANUAL DIFF FLAG NO
[2025-02-22 10:24] LABS: Basophils Percent Auto 0.5 % (0-2); Eosinophils Percent Auto 0.2 % (0-4); Hematocrit 41.4 % (37.0-47.0); Hemoglobin 13.6 g/dl (12.0-16.0); Imm Gran Abs Auto 0.02 X10*3/uL (0.00-0.03); Imm Gran Pct Auto 0.3 % (0.0-0.4); Lymphocytes Absolute Auto 1.3 X10*3/uL (1.2-4.9); Lymphocytes Percent Auto 20.6 % (20-40); Mean Corpuscular HGB Conc 32.9 g/dl (31.0-35.0); Mean Corpuscular Hemoglobin 31.1 pg (27.0-33.0); Mean Corpuscular Volume 94.7 fL (80.0-98.0); Mean Platelet Volume 11.7 fL (9.4-12.3); Monocytes Absolute Auto 0.3 X10*3/uL (0.1-1.2); Monocytes Percent Auto 5.1 % (2-11); Neutrophils Absolute Auto 4.8 x10*3/uL (2.0-8.3); Neutrophils Percent Auto 73.3 % (45-73); Platelet Count 262 X10*3/uL (160-400); Red Blood Count 4.37 X10*6/uL (4.20-5.50); Red Cell Distribution Width 12.7 % (11.0-16.0); White Blood Count 6.5 X10*3/uL (4.8-10.8)
[2025-02-22 11:30] LABS: Alanine Aminotransferase 32 U/L (0-31); Albumin Level 4.6 g/dL (3.5-5.0); Alkaline Phosphatase 67 U/L (39-117); Anion Gap 12 (12-20); Aspartate Amino Transferase 24 U/L (5-31); Bilirubin Total 0.9 mg/dL (0.0-1.0); Blood Urea Nitrogen 20 mg/dL (9-16); Calcium 9.6 mg/dL (8.4-10.2); Carbon Dioxide 26 mmol/L (22-29); Chloride 107 mmol/L (96-108); Cholesterol 219 mg/dL (<200); Estimated Glomerular Filt Rate 56; Glucose Fasting 74 mg/dL (60-99); HDL Cholesterol 83 mg/dL (>40); LDL Cholesterol Calculated 124 mg/dL (<100); Potassium 4.1 mmol/L (3.3-5.1); Sodium 141 mmol/L (135-145); Total Protein 7.5 g/dL (6.5-8.0); Triglycerides 62 mg/dL (<150)
[2025-02-22 11:32] LABS: TSH reflex Free T4 1.04 uIU/mL (0.32-4.0); Vitamin D 25-OH Total 70.3 ng/mL (>30)
== END 2025-02-22 08:55 | disposition home or self-care (01) ==
LOC: HO.HMGCLDS 08:54
PROVIDERS: PCP Internal Medicine; Visit Provider Internal Medicine
DX: Z00.00 Encounter for general adult medical examination without abnormal findings (principal); N18.30 Chronic kidney disease, stage 3 unspecified; M85.80 Other specified disorders of bone density and structure, unspecified site; E55.9 Vitamin D deficiency, unspecified
CPT/HCPCS: 36415; 80053; 80061; 81001; 82306; 84443; 85025

== ENCOUNTER 2025-02-25 08:25 | Outpatient (AMB) | payer OTHER, SELFPAY ==
[2025-02-25 08:27] VITALS: BP 120/78; PULSE 64; RESP 18; TEMP 36.7; O2SAT 100; BMI 22.3
--- NOTE | 2025-02-25 08:27 | MHC.PC.OV ---
Vital Signs 02/25/25 08:27 Height 5 ft 2 in Weight 122 lb BMI 22.3 BP 120/78 Blood Pressure Location Lt brachial Position Sitting Respiration 18 Pulse 64 Pulse Source Pulse Oximeter Temp 98.0 F Temp Source Oral Pulse Oximetry (%) 100 Oxygen Delivery Method Room Air Intake Visit Reasons: PE Intake Note: Pt is here today for PE. 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 Mother Squamous cell lung cancer Son No problems noted. Daughter No problems noted. Social History Housing: House Patient Tobacco Use Status: Never used Tobacco e-Cigarette/Vaping Use: Never Used service: No Current occupational status: employed Cognitive needs: No Hearing needs: No Vision needs: Yes Questionnaire PHQ-9 Over the last 2 weeks, how often have you been bothered by any of the following problems? 1. Little interest or pleasure in doing things: not at all 2. Feeling down, depressed, or hopeless: not at all 3. Trouble falling or staying asleep, or sleeping too much: not at all 4. Feeling tired or having little energy: not at all 5. Poor appetite or overeating: not at all 6. Feeling bad about yourself - or that you are a failure or have let yourself or your family down: not at all 7. Trouble concentrating on things, such as reading the newspaper or watching television: not at all 8. Moving or speaking so slowly that other people could have noticed. Or the opposite - being so fidgety or restless that you have been moving around a lot more than usual: not at all 9. Thoughts that you would be better off or of hurting yourself in some way: not at all Total score: 0 Depression Screening Interpretation: Negative Depression Screening Done: Yes 59581 - PHQ-9 Billing: Yes Source: Developed by Drs. Jj Grover, Shelby Albarado, Phillip Tavera and colleagues, with an educational meri from [employer]. Thrive Questionnaire Date Thrive assessed: 02/25/25 I am a: Patient What is your living situation today?: I have a steady place to live Within the past 12 months, did the food you bought not last and you didn't have the money to get more?: Never true Within the past 12 months, did you worry whether your food would run out before you got money to buy more?: Never true Do you have trouble paying for medicines?: No Do you have trouble getting transportation to medical appointments?: No Do you have trouble paying your heating and electricity bill?: No Do you have trouble taking care of your child, family member or friend?: No Do you have trouble with day-to-day activities such as bathing, preparing meals, shopping, managing finances, etc.?: No Are you currently unemployed and looking for a job?: No Are you interested in more education?: No Please select the resources that you would like help with: None Currently or been in a relationship where the following occur: No concerns reported THRIVE Score: 0 AUDIT C Alcohol Use Questionnaire (AUDIT-C) 1. How often do you have a drink containing alcohol?: Never 3. How often do you have six or more drinks on one occasion?: Never Total Score: 0 HARJEET-7 AMB Questionnaire HARJEET-7 Date HARJEET - 7 assessed: 01/31/24 Feeling nervous, anxious, or on edge: 0 = Not at all Not being able to stop or control worryin = Not at all Worrying too much about different things: 0 = Not at all Trouble relaxin = Not at all Being so restless that it is hard to sit still: 0 = Not at all Becoming easily annoyed or irritable: 0 = Not at all Feeling afraid as if something awful might happen: 0 = Not at all Total HARJEET-7 score (0-4 normal; 5-9 mild; 10-14 moderate; 15-21 severe): 0 Source: Developed by Drs. Jj Grover, Shelby Albarado, Phillip Tavera and colleagues, with an educational meri from [employer]. HARJEET-7 Assessment Billing HARJEET-7 Assessment Tool: HARJEET-7 Assessment 80435 Review of Systems Const All systems reviewed & are unremarkable except as noted in HPI and below Eyes Reports no additional complaints ENT Reports no additional complaints Card Reports no additional complaints Resp Reports no additional complaints GI Reports no additional complaints Reports no additional complaints Physical exam (Primary Care) Vital Signs: Last Vital Signs Temp 98.0 F 02/25/25 08:27 Pulse 64 02/25/25 08:27 Resp 18 02/25/25 08:27 BP 120/78 02/25/25 08:27 Pulse Ox 100 02/25/25 08:27 Oxygen Delivery Method Room Air 02/25/25 08:27 BMI result Body Mass Index 22.3 Tobacco/Smoking Status: Tobacco use Status Tobacco use date assessed 02/25/25 02/25/25 08:32 Patient Tobacco Use Status Never used Tobacco 02/25/25 08:32 e-Cigarette/Vaping Use Never Used 02/25/25 08:32 PHQ-9: PHQ-9 Score PHQ-9: Total score 0 02/25/25 08:57 Depression Screening Interpretation: Negative Thrive Assessment: Date of Thrive Assessment Date Thrive assessed 02/25/25 02/25/25 08:32 Currently or been in a relationship where the following occur: No concerns reported Const General: no acute distress HENMT Head: Yes normal to inspection Ears: hearing grossly normal bilaterally Face and sinus: Yes normal facial exam Mouth: Normal oral and palatal mucosa present Neck Neck: Yes no lymphadenopathy and Yes supple Resp Effort & Inspection: normal respiratory effort Auscultation: clear to auscultation bilaterally Cardio Rhythm: regular rhythm Heart sounds: S1 normal heart sound present and S2 normal heart sound present GI Inspection: Yes normal to inspection Palpation (GI): Soft to palpation Percussion: Yes normal to percussion Auscultation: normal bowel sounds Coding Level of Care Code Est Pt Prev Care 40-64y(00533) Diagnoses Chronic kidney disease, stage 3 N18.30 Annual physical exam Z00.00 Osteopenia M85.80 Additional Codes HARJEET-7 Assessment Billing - HARJEET-7 Assessment Tool: HARJEET-7 Assessment 76130 ([id number]) PHQ-9 - 28603 - PHQ-9 Billing: Yes ([id number]) Assessment & Plan Assessment & Plan (1) Chronic kidney disease, stage 3: Comment: Negative renal ultrasound Code(s): N18.30 - Chronic kidney disease, stage 3 unspecified Category: Medical Plan: Monitor renal function avoid nephrotoxins (2) Annual physical exam: Code(s): Z00.00 - Encounter for general adult medical examination without abnormal findings Category: Medical Plan: Well-balanced diet regular physical activity discussed with the patient she is up-to-date with the mammogram colonoscopy and Pap by supervisor sound technician (3) Osteopenia: Comment: 09/2019 [facility], worsening osteoporosis DEXA 06/30, started Fosamax by supervisor sound technician, DEXA by supervisor sound technician 2024 check report Code(s): M85.80 - Other specified disorders of bone density and structure, unspecified site Category: Medical Plan: Continue Fosamax and vitamin-D 3 follow-up with supervisor sound technician
--- OUTSIDE RECORDS SUMMARY | 2025-02-25 08:32 | XMS_ITS | Patient Health Record ---
Author Organization [facility] Address [address] [place] [address] Care Team Providers Care Bariatric Program Coordinator Name Role Phone August CRUZ, Hannah Primary Care Provider Kaley Vargas Unavailable [phone] Allergies No Known Allergies Results Component Value [...] Status Risk Notes Problem Postmenopausal atrophic vaginitis (54979777) Postmenopausal atrophic vaginitis (N95.2) Active confirmed Problem Age-related osteoporosis (861423307) Age-related osteoporosis without current pathological fracture (M81.0) Active confirmed Problem History of dysplasia of cervix (459826400) Personal history of cervical dysplasia (Z87.410) Active confirmed Problem Menopausal symptom (22747737) Symptomatic menopausal or female climacteric states (627.2) Active confirmed Major Problem Postmenopausal atrophic vaginitis (92470903) Postmenopausal atrophic vaginitis (627.3) Active confirmed Diag Problem Gynecological examination normal (617036398700595) Routine gynecological examination (V72.31) Active confirmed Diag Problem Screening for malignant neoplasm of cervix (735404652) Screening for malignant neoplasm of the cervix (V76.2) Active confirmed Diag Problem Screening for malignant neoplasm of colon (973690602) Special screening for malignant neoplasms, colon (V76.51) Active confirmed Major Vital Signs Temperature 97.9 degrees Fahrenheit 12/27/2024 Blood pressure diastolic 68 mm Hg 12/27/2024 Height 61 in 12/27/2024 Blood pressure systolic 114 mm Hg 12/27/2024 Weight 118 lbs 12/27/2024 BMI 22.29 kg/m2 12/27/2024 Encounters Encounter Location Date Provider Diagnosis [address] [address] 12/27/2024 Kaley Cardona Encounter for gynecological examination [...] Screening 12/27/2024 MM Digital Mammo Screening 12/19/2023 [id number] IGP No Culture 30 Plus 2023 Next Appt Details Provider Name:Kaley aco, 01/02/2026 08:00:00 AM, [address] [place] [address], [address], [place], [address], Insurance Providers Payer Name Payer Address Payer Phone Subscriber Number Group Number Insured Name Patient Relationship to Insured Coverage Start Date Coverage End Date [employer] [address] [place] [address] [id number] SONNY BRUNO Self - patient is [...] multiple sites M85.89 Surgical History Surgery Date(Month/Year) [place] Teeth Bilateral Tubal Ligation Myomectomy Left Salpingoopherectomy Colonoscopy Colposcopy Leep Hospitalization History Reason Date(Month/Year) See Surgical Hx 2 Vaginal Deliveries
--- OUTSIDE RECORDS SUMMARY | 2025-02-25 08:33 | XMS_ITS ---
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 :1960???Age:63 Y???Sex:Female D ate:12/23/2023 Address:[address] [place] [address] [place] Pcp:Hannah Koch MD Subjective: * Chief Complaints: * ???1. 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 * Medical History:? Objective: * Vitals:? Assessment: Plan: * Treatment: * Images: Billing Information: * Visit Code:? * Procedure Codes:? * Electronic signature of Miryam Cardona MD on 02/25/2025 at 08:33 AM EDT Sign off status: Pending * Appointment Provider:?Kaley Cardona M.D. Date:?12/23/2023 Generated for Mesfin mccabe/Antony/Miriam on:?02/25/2025 08:33 AM EDT
--- OUTSIDE RECORDS SUMMARY | 2025-02-25 08:33 | XMS_ITS ---
Author Organization [facility] Address [address] [place] [address] Care Team Providers Care Sorter Upholstery Parts Name Role Phone Hannah Koch MD Primary Care Provider Jj Barry [phone] REASON FOR VISIT growth Encounters Encounter Location Date Provider Diagnosis [facility] [address] [place] [address] 04/23/2024 Jj Carter Plan Of Treatment No Information Progress Notes * ROMÁN BRUNOB:[birth year] 60 (63 yo F)Acc No.[id number]:04/23/2024 Patient:?SONNY BRUNO :1960???Age:63 Y???Sex:Female Address:[address] [place] [address] [place] [address] * true * Date:? Generated for Mesfin mccabe/Antony/eTransmitting on:?02/25/2025 08:32 AM EDT
--- OUTSIDE RECORDS SUMMARY | 2025-02-25 08:33 | XMS_ITS | Patient Health Record ---
Author Organization [facility] Address [address] [place] [address] Care Team Providers Care Kindergarten Instructional Assistant Name Role Phone Hannah Koch MD Primary Care Provider Jj Barry [phone] Allergies No Known Allergies Reason For Referral No Information Medications Medication SIG (Take, Route, Frequency, Duration) Notes Start Date End Date Status Calcium Active Vitamin B6 Active Magnesium Active Immunizations Vaccine Route Administration Date Status Comme nts Influenza Unknown 07/16/2021 Administered Problems Problem Type SNOMED Code ICD Code Onset Dates Problem Status W/U Status Risk Notes Problem 641696344 Encounter for screening for malignant neoplasm of colon (Z12.11) Active confirmed Problem 463962116549193 Preprocedural examination (Z01.818) Active confirmed Problem 432371156 Family hx coloni c polyps (Z83.71) Active confirmed Problem 9626501501208 Family history o f colorectal cancer (Z80.0) Active confirmed Problem Diverticulosis of colon (150529574) Diverticulosis of colon (K57.30) Active confirmed Encounters Encounter Location Date Provider Diagnosis [facility] [address] [place] [address] 04/23/2024 Jj Carter Plan Of Treatment Future Test Test Name Order Date COLONOSCOPY 07/08/2015 COLONOSCOPY 07/17/2021 Insurance Providers Payer Name Payer Address Payer Phone Subscriber Number Group Number Insured Name Patient Relationship to Insured Coverage Start Date Coverage End Date [employer] [address] [place] [address] [id number] SONNY BRUNO Self - patient is the insured Medical (General) History Medical History History ICD Code Colonoscopy 06-02-2009 was ne gative other than some mild sigmoid diverticulosis and small internal hemorrhoids; negative screening colonoscopy in 09/2015 Denies [place],DM,CVA,Lung disease,renal dise ase Surgical History Surgery Date(Month/Year) Tubal ligation 1985 Left ovarian cyst 2007
== END 2025-02-25 09:02 | disposition home or self-care (01) ==
LOC: HO.HMCC 08:26
PROVIDERS: PCP Internal Medicine; Visit Provider Internal Medicine
DX: N18.30 Chronic kidney disease, stage 3 unspecified (principal); Z00.00 Encounter for general adult medical examination without abnormal findings; M85.80 Other specified disorders of bone density and structure, unspecified site

== ENCOUNTER → 2025-02-25 08:25 | Outpatient (BNVA) | payer OTHER, SELFPAY | PROVIDERS: PCP Internal Medicine; Visit Provider Internal Medicine | DX: Z00.00 Encounter for general adult medical examination without abnormal findings (principal); N18.30 Chronic kidney disease, stage 3 unspecified; M85.80 Other specified disorders of bone density and structure, unspecified site | CPT/HCPCS: 96127 ==

== ENCOUNTER 2025-02-28 12:24 | Outpatient (AMB) | payer OTHER, SELFPAY ==
--- NOTE | 2025-02-28 12:34 | AM.OFFVISNUR ---
Intake Visit Reasons: Pneumonia vaccine Allergies No Known Allergies Allergy (Verified 02/25/25 08:27) Immunizations pneumoc 20-amber conj-dip cr(PF) 0.5 mL IM syringe Performing Provider: Hannah Koch MD Performing Location: [facility] Administered by: Kofi Andrade CMA on 02/28/25 12:42 Dose Route Admin Location Dispensed Lot Number Expiration Date NDC Buyer Intern 0.5 mL IM Left Deltoid 0.5 mL [id number] 04/08/26 0619-7968-24 [employer] VIS Given Date VIS Provided VIS Publication Date 02/28/25 Single Vaccine 21 Eligibility Eligibility Date Funding Source Not [facility] Eligible 02/28/25 Private Assessment & Plan Assessment & Plan Orders: Orders Pneumococcal 20 Immunization Today Z23 - Encounter for immunization Medications: New pneumoc 20-amber conj-dip cr(PF) 0.5 mL IM ONCE 0.5 mL 0RF Z23 - Encounter for immunization Coding
--- OUTSIDE RECORDS SUMMARY | 2025-02-28 12:34 | XMS_ITS | Patient Health Record ---
Author Organization [facility] Address [address] [place] [address] Care Team Providers Care Project Consultant Name Role Phone August CRUZ, Hannah Primary Care Provider Kaley Vargas Unavailable [phone] Allergies No Known Allergies Results Component Value [...] Status Risk Notes Problem Postmenopausal atrophic vaginitis (97468449) Postmenopausal atrophic vaginitis (N95.2) Active confirmed Problem Age-related osteoporosis (603627494) Age-related osteoporosis without current pathological fracture (M81.0) Active confirmed Problem History of dysplasia of cervix (331946538) Personal history of cervical dysplasia (Z87.410) Active confirmed Problem Menopausal symptom (17439425) Symptomatic menopausal or female climacteric states (627.2) Active confirmed Major Problem Postmenopausal atrophic vaginitis (07792448) Postmenopausal atrophic vaginitis (627.3) Active confirmed Diag Problem Gynecological examination normal (473298645023503) Routine gynecological examination (V72.31) Active confirmed Diag Problem Screening for malignant neoplasm of cervix (466330437) Screening for malignant neoplasm of the cervix (V76.2) Active confirmed Diag Problem Screening for malignant neoplasm of colon (562251952) Special screening for malignant neoplasms, colon (V76.51) Active confirmed Major Vital Signs Temperature 97.9 degrees Fahrenheit 12/27/2024 Blood pressure diastolic 68 mm Hg 12/27/2024 Height 61 in 12/27/2024 Blood pressure systolic 114 mm Hg 12/27/2024 Weight 118 lbs 12/27/2024 BMI 22.29 kg/m2 12/27/2024 Encounters Encounter Location Date Provider Diagnosis [address] [address] 12/27/2024 Kaley Cardona Encounter for gynecological examination [...] Screening 12/27/2024 MM Digital Mammo Screening 12/19/2023 [id number] IGP No Culture 30 Plus 2023 Next Appt Details Provider Name:Kaley cao, 01/02/2026 08:00:00 AM, [address] [place] [address], [address], [place], [address], Insurance Providers Payer Name Payer Address Payer Phone Subscriber Number Group Number Insured Name Patient Relationship to Insured Coverage Start Date Coverage End Date [employer] [address] [place] [id number] SONNY BRUNO Self - patient is [...] multiple sites M85.89 Surgical History Surgery Date(Month/Year) [place] Teeth Bilateral Tubal Ligation Myomectomy Left Salpingoopherectomy Colonoscopy Colposcopy Leep Hospitalization History Reason Date(Month/Year) See Surgical Hx 2 Vaginal Deliveries
--- OUTSIDE RECORDS SUMMARY | 2025-02-28 12:34 | XMS_ITS | Patient Health Record ---
Author Organization [facility] Address [address] [place] [address] Care Team Providers Care Barnworker Groom Name Role Phone Hannah Koch MD Primary Care Provider Jj Barry [phone] Allergies No Known Allergies Reason For Referral No Information Medications Medication SIG (Take, Route, Frequency, Duration) Notes Start Date End Date Status Calcium Active Vitamin B6 Active Magnesium Active Immunizations Vaccine Route Administration Date Status Comme nts Influenza Unknown 07/16/2021 Administered Problems Problem Type SNOMED Code ICD Code Onset Dates Problem Status W/U Status Risk Notes Problem 115360310 Encounter for screening for malignant neoplasm of colon (Z12.11) Active confirmed Problem 169209581005662 Preprocedural examination (Z01.818) Active confirmed Problem 062724400 Family hx coloni c polyps (Z83.71) Active confirmed Problem 1371919440591 Family history o f colorectal cancer (Z80.0) Active confirmed Problem Diverticulosis of colon (573263070) Diverticulosis of colon (K57.30) Active confirmed Encounters Encounter Location Date Provider Diagnosis [facility] [address] [place] [address] 04/23/2024 Jj Carter Plan Of Treatment Future Test Test Name Order Date COLONOSCOPY 07/08/2015 COLONOSCOPY 07/17/2021 Insurance Providers Payer Name Payer Address Payer Phone Subscriber Number Group Number Insured Name Patient Relationship to Insured Coverage Start Date Coverage End Date [employer]MNITY [address] [place] [address] [id number] SONNY BRUNO Self - patient is the insured Medical (General) History Medical History History ICD Code Colonoscopy 06-02-2009 was ne gative other than some mild sigmoid diverticulosis and small internal hemorrhoids; negative screening colonoscopy in 09/2015 Denies [place],DM,CVA,Lung disease,renal dise ase Surgical History Surgery Date(Month/Year) Tubal ligation 1985 Left ovarian cyst 2007
--- OUTSIDE RECORDS SUMMARY | 2025-02-28 12:34 | XMS_ITS ---
Author Organization [facility] Address [address] [place] [address] Care Team Providers Care Police Sergeant Name Role Phone Hannah Koch MD Primary Care Provider Jj Barry [phone] REASON FOR VISIT growth Encounters Encounter Location Date Provider Diagnosis [facility] [address] [place] [address] 04/23/2024 Jj Carter Plan Of Treatment No Information Progress Notes * ROMÁN BRUNOB:[birth year] (63 yo F)Acc No.[id number]:04/23/2024 Patient:?SONNY BRUNO :1960???Age:63 Y???Sex:Female Address:[address] [place] [address] [place] [address] * true * Date:? Generated for Mesfin mccabe/Antony/eTransmitting on:?02/28/2025 12:34 PM EDT
--- OUTSIDE RECORDS SUMMARY | 2025-02-28 12:34 | XMS_ITS ---
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 :1960???Age:63 Y???Sex:Female D ate:12/23/2023 Address:[address] [place] [address] [place], [place] Pcp:Hannah Koch MD Subjective: * Chief Complaints: * ???1. 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 * Medical History:? Objective: * Vitals:? Assessment: Plan: * Treatment: * Images: Billing Information: * Visit Code:? * Procedure Codes:? * Electronic signature of Miryam Cardona MD on 02/28/2025 at 12:34 PM EDT Sign off status: Pending * Appointment Provider:?Kaley Cardona M.D. Date:?12/23/2023 Generated for Mesfin mccabe/Antony/Miriam on:?02/28/2025 12:34 PM EDT
== END 2025-02-28 12:55 | disposition home or self-care (01) ==
LOC: HO.HMCC 12:25
PROVIDERS: PCP Internal Medicine; Visit Provider Internal Medicine
DX: Z23 Encounter for immunization (principal)

== ENCOUNTER → 2025-02-28 12:24 | Outpatient (BNVA) | payer OTHER, SELFPAY | PROVIDERS: PCP Internal Medicine; Visit Provider Internal Medicine | DX: Z23 Encounter for immunization (principal) | CPT/HCPCS: 90471; 90677 ==